=== PATIENT | female | born 1960 | race Caucasian/White ===

== ENCOUNTER 2022-05-29 19:57 | Emergency (ER) | payer OTHER ==
[~2022-05-29] VITALS: Ht 162.6 cm; Wt 59.0 kg
[2022-05-29] MEDS ORDERED: TRAM50TA4 PO (22:06)
[2022-05-29 22:16] VITALS: BP 135/98
[2022-05-29] MEDS ORDERED: TRAMADOL HCL 50 MG TABLET PO ONE (22:30)
== END 2022-05-29 22:45 | disposition home or self-care (01) ==
LOC: EDH 19:57
DX: M25.511 Pain in right shoulder (principal); G35 Multiple sclerosis; Z98.890 Other specified postprocedural states; Z79.1 Long term (current) use of non-steroidal anti-inflammatories (NSAID)
CPT/HCPCS: 29125; 73000; 73030